=== PATIENT | female | born 1985 | race Caucasian/White ===

== ENCOUNTER 2018-07-02 23:37 | Observation (INO) ==
[2018-07-03 00:27] LABS: Bilirubin,Urine Negative (Negative); Blood,Urine Negative (Negative); Clarity,Urine Clear (Clear); Color,Urine Yellow (Yellow); Glucose,Urine (UA) Normal (Normal); Ketones,Urine Negative (Negative); Leukocyte Esterase,Urine Small (Negative); Nitrite,Urine Negative (Negative); PH,Urine 6.5 pH Units (5.0-8.0); Protein,Urine Negative (Neg-Trace); Specific Gravity,Urine 1.008 (1.010-1.025); Urobilinogen,Urine Normal (Normal)
[2018-07-03 00:29] LABS: Bacteria,Urine None Seen per hpf (None-Few); Hyaline Casts,Urine None Seen per lpf (None-Few); RBC,Urine 0-3 per hpf (0-3); Squamous Epithelial Cell,Urine Many per lpf (None-Few); WBC,Urine 0-3 per hpf (0-3)
[2018-07-03 00:41] LABS: Amphetamine Screen,Urine Negative ng/mL (Cutoff=1000); Barbiturate Screen,Urine Negative ng/mL (Cutoff=200); Benzodiazepines Screen,Urine Negative ng/mL (Cutoff=200); Cannabinoid Screen,Urine Negative ng/mL (Cutoff = 50); Cocaine Screen,Urine Negative ng/mL (Cutoff= 300); Opiate Screen,Urine Negative ng/mL (Cutoff=300); Phencyclidine Screen,Urine Negative ng/mL (Cutoff=25)
[2018-07-03] MEDS ORDERED: Acetaminophen 325 MG TABLET PO ONE (00:41)
--- NOTE | 2018-07-03 05:49 | OB/GYN Progress Note ---
Date of Encounter: 07/03/18 Time of Encounter: 05:44 - Assessment and Plan (1) 36 weeks gestation of Status: Acute Follow up as scheduled Labor parameters discussed Discharge home (2) Uterine contractions at greater than 20 weeks of gestation Status: Acute Extended monitoring was completed without cervical change Tylenol for pain RTC for labor. Subjective - Subjective Principal diagnosis: prodromal labor Interval history: Ms. Ramos presents with c/o contractions that started earlier in the evening on 07/02. She endorses good fm and denies lof and vb. Antepartum ROS: new complaints, movement normal, contractions, no loss of fluid, no vaginal bleeding Objective - Exam FHR: category 1 Auscultation: bilateral: normal Abdomen: Present: normal appearance, soft, gravid Uterus: Present: normal, firm Cervical dilation: 1 Cervix effacement: 50 station: -2 - Labs Labs: Abnormal lab results Ur Specific [place] 1.008 (1.010-1.025) L 07/03/18 00:10 Ur Leukocyte Esterase Small (Negative) H 07/03/18 00:10 Ur Squamous Epith Cells Many per lpf (None-Few) H 07/03/18 00:10 Ur Culture Indicated? NO. (NO) A 07/03/18 00:10
== END 2018-07-03 02:12 | disposition home or self-care (01) ==
LOC: 1NENULAB
PROVIDERS: ADMIT Advanced Practice Midwife; ATTEND Advanced Practice Midwife

== ENCOUNTER 2018-07-05 19:45 | Inpatient (IN) ==
[2018-07-05 20:32] LABS: Amphetamine Screen,Urine Negative ng/mL (Cutoff=1000); Barbiturate Screen,Urine Negative ng/mL (Cutoff=200); Benzodiazepines Screen,Urine Negative ng/mL (Cutoff=200); Cannabinoid Screen,Urine Negative ng/mL (Cutoff = 50); Cocaine Screen,Urine Negative ng/mL (Cutoff= 300); Opiate Screen,Urine Negative ng/mL (Cutoff=300); Phencyclidine Screen,Urine Negative ng/mL (Cutoff=25)
[2018-07-05] MEDS ORDERED: Ondansetron 4 MG/2 ML VIAL IVP PRN (20:50)
[2018-07-05] MEDS ORDERED: Naloxone 0.4 MG/ML INJ IVP PRN (20:50)
[2018-07-05] MEDS ORDERED: Metoclopramide 10 MG/2 ML VIAL IVP PRN (20:50)
[2018-07-05] MEDS ORDERED: *HR* Nalbuphine 10 MG/ML AMPUL IVP PRN (20:50)
[2018-07-05] MEDS ORDERED: Famotidine 20 MG/2 ML VIAL IVP PRN (20:50)
[2018-07-05] MEDS ORDERED: Ringers Solution, Lactated 1,000 ML ONE (20:53)
[2018-07-05] MEDS ORDERED: Ringers Solution, Lactated 1,000 ML IVC SCH (21:00)
--- NOTE | 2018-07-05 21:00 | OB/GYN History & Physical ---
Date of Encounter: 07/05/18 Time of Encounter: 20:57 Assessment and Plan (1) 37 weeks gestation of Current visit: Yes Status: Acute Pt presents with very strong contractions as evidenced by being very uncomfortable. Her cervix has mad def change from office visit earlier today. Plan will be to admit with anticipation of . (2) Trisomy 21 of fetus, current , single gestation Current visit: Yes Status: Acute Will cont.close observation of well being. History of Present Illness Chief complaint: Labor HPI: Ms. Ramos is a 33 year old female female at 37 weeks EGA presents in active labor. She reports 2 hours of progressively worsening uc's <5 min apart. She denies lof or vb. In office today her cervix was 1/70/-2, she is now 3/80-90/-2. This is complicated by with dx of Trisomy 21. Past Med Surg Social Fam HX - Past Medical History Source: patient, old records reviewed Medical history: no medical history Psychiatric history: no psych history - Past Surgical History Surgical History: no surgical history - Social History Smoking Status: Current every day smoker Smokeless Tobacco Status: No Alcohol use: none Drug use: none - Family History Mother Adopted: No Living Status: Still Living Hx Family Cardiac Disorders: Yes (hypertension) Hx Family Respiratory Disorders: No Hx Family Cancer: No Hx Family GI Disorders: No Hx Family Genitourinary Disorders: No Hx Family Endocrine Disorder: No Hx Family Musculoskeletal Disorders: No Hx Family Neuromuscular Disorders: No Hx Family Neurologic Disorders: No Hx Family HEENT Disorders: No Hx Family Autoimmune Disorders: No Hx Family Reproductive Disorders: No Hx Family Psychosocial Disorders: No Hx Family Medical Disorders: No Obstetrical History - Pregnancies : 4 Term: 2 Medications and Allergies Tablet 1 tab PO DAILY 07/03/18 [History] Allergy/AdvReac Type Severity Reaction Status Date / Time No Known Allergies Allergy Verified 03/01/15 13:49 Exam - Constitutional Constitutional: well developed, well nourished, moderate distress - HEENT HEENT: EOMI, PERRL - Neck Neck exam: full ROM - Lungs Respiratory exam: CTAB - Cardiovascular Cardiovascular exam: RRR - Abdomen Abdomen: Present: gravid - Extremities Extremities exam: full ROM Deep Tendon Reflex Grade: 2+ Normal - Cervix Dilation: 3 Effacement: 80 Station: -2 - Uterus Uterus exam: Present: normal size Results All other labs normal. - VTE Reasons for not Prescribing Prophylaxis: Treatment not Indicated - Low risk for VTE
[2018-07-05 21:15] LABS: Basophils % 0.2 %; Eosinophils # 0.2 K/mcL (0.0-0.6); Eosinophils % 1.4 %; Hematocrit 40.6 % (35.3-44.9); Hemoglobin 13.9 g/dL (11.5-15.4); Immature Granulocytes % 0.4 % (0-4); Lymphocytes # 2.4 K/mcL (0.6-4.6); Lymphocytes % 18.7 %; Mean Corpuscular HGB Conc 34.2 g/dL (31.6-35.5); Mean Corpuscular Hemoglobin 31.7 pg (28.0-33.3); Mean Corpuscular Volume 92.5 fL (83.0-100.0); Mean Platelet Volume 11.1 fL (9.4-12.4); Monocytes # 0.8 K/mcL (0.0-1.3); Neutrophils # 9.5 K/mcL (1.6-8.9); Platelet Count 218 K/mcL (140-400); Red Blood Count 4.39 M/mcL (3.82-4.97); Red Cell Distribution Width 12.3 % (11.5-14.5); Segmented Neutrophils % 73.3 %
[2018-07-05] MEDS ORDERED: *HR* FentaNYL (PF) 100 MCG/2 ML VIAL ONE (21:18)
[2018-07-05] MEDS ORDERED: Lidocaine -MPF 1% 5 ML AMPUL ONE (21:19)
[2018-07-05] MEDS ORDERED: Bupivacaine-MPF 0.25% 10 ML VIAL ONE (21:19)
[2018-07-05] MEDS ORDERED: Epidural Premix (fent/bupiv) 110 ML EP ONE (21:39)
--- NOTE | 2018-07-05 21:52 | Anesthesia Evaluation PreOp ---
Date of Encounter: 07/05/18 Time of Encounter: 21:15 - Past History Planned Operation: rae Cardiac History: Denies any Significant Hx Pulmonary History: Denies Any Significant HX LAB AIDE History: Denies Any Significant HX Other Medical History: Denies Any Significant HX Anesthesia History: No Prior Anesthetic Complications, Past Anesthesia (no prior anesthetics) : Yes (37 weeks, ) Alcohol Use: none Drug use: none Medications and Allergies Tablet 1 tab PO DAILY 07/03/18 [History] Allergy/AdvReac Type Severity Reaction Status Date / Time No Known Allergies Allergy Verified 03/01/15 13:49 - Meds/Allergy Pre-op Review Medications Reviewed: Yes Allergies Reviewed: Yes Beta Blockers on Current Med List: No Anesthesia Results - Labs 07/05/18 21:00 Anesthesia Exam O2 Sat Height 1.73 m Weight 78.109 kg bp 132/87 Height: 68 Weight: 172 - HEENT Pupil (Motor): Pupils equal Mallampati: II Teeth: Normal Oral Opening: Greater than 3 - LAB AIDE LOC: Oriented LAB AIDE Motor: Normal RUE, Normal LUE, Normal RLE, Normal LLE, Normal Face LAB AIDE Sensory: Normal: RUE, LUE, RLE, LLE, Face - Cardiac Rhythm: Regular Murmur: None JVD: No Carotid Bruit: No - Pulmonary Breath Sounds: bilateral Clear Respiratory Effort: Symmetrical Anesthesia Assess/Plan ASA Score: 2 Level of consciousness: Cooperative Anesthetic Plan: Epidural Monitoring Plan: Standard Monitors
--- NOTE | 2018-07-05 22:00 | Anesthesia Procedures ---
Addendum entered and electronically signed by Roman Richmond CRNA 07/06/18 07:02: Infant Delivery Date: 07/05/18 Delivery Time: 22:58 Original Note: Date of Encounter: 07/05/18 Time of Encounter: 21:21 (procedure ended at 2139) Procedures: Anesthesia - Epidural/Spinal Patient ID/Chart reviewed: Yes Patient examined: Yes OB Eval: Gestational age: 37 OB Eval: : 4 OB Eval: Hx Para: 2 OB Eval: Dilated at (cm): 5 OB Eval: Contractions: Non-stressed pattern Consent Obtained: Yes Supplemental Oxygen: None/Room Air Site Prep: Aseptic Technique Patient position: upright Local Anesthetic: Lidocaine 1% Amount of Local Anesthetic used: 2 Touhy Needle Gauge: 18 Touhy Needle Depth (cm): 5 Catheter Depth at Skin (cm): 12 Test Dose (1.5% Lido + Epi): Volume given (mls): 3 Test Dose Result: Negative Loading Dose: 0.25% Marcaine (mls): 7 Loading Dose: Fentanyl (mcg): 100 Loading Dose Administered: Thru Touhy Needle Infusion Med: 0.125% Bupivacaine w/ 2 mcg/ml Fentanyl Infusion Rate (mls/hr): [address]: Tegaderm Interspace Used: L3-L4 Loss of Resistance (JAGDEEP): Yes Blood: No CSF: No Paresthesia: No
[2018-07-05] MEDS ORDERED: Oxytocin 20 units/ LR 1000 mL 20 UNIT/1,000 ML BAG IVC ONE (22:55)
--- NOTE | 2018-07-05 23:28 | OB/GYN Procedure Note ---
Delivery - Delivery Date: 07/05/18 Provider: Jelani Quezada Intrapartum events: none Delivery induction: none Delivery augmentation: rupture of membranes Delivery monitor: external FHT, external uterine Anesthesia: epidural Quantitated Blood Loss: 100 - Infant (s) A Delivery Date: 07/05/18 Infant Delivery Time: 22:58 Position: LETHA Route of delivery: Gender: Female Viability: Viable Pounds: 4 Ounces: 14 at 1 minute: 8 at 5 mins: 9 Shoulder Dystocia: not encountered Specimens collected: cord blood Placenta: spontaneous Cord: 3 umbilical vessels - Repair Episiotomy: none Laceration Description: None - Complications Delivery complications: none - Disposition Mom disposition: stable in LDR disposition: stable in LDR - Comments Comments: Pt s/p of liveborn female 4lb 14 oz with apgars 8 & 9 at 1 and 5 min respectively. Infant with typical changes characteristic of trisomy 21. We has spontaneous delivery of small calcified placenta. No laceration. EBL 100 cc. Mother and infant recoverd in LDR.
[2018-07-06] MEDS ORDERED: Acetaminophen 325 MG TABLET PO PRN (00:09)
[2018-07-06] MEDS ORDERED: Measles/Mumps/Rubella Vacc 0.5 ML VIAL SQ PRN (00:09)
[2018-07-06] MEDS ORDERED: Oxytocin 20 units/ LR 1000 mL 20 UNIT/1,000 ML BAG IVC SCH (00:09)
[2018-07-06] MEDS ORDERED: Rho Immune Globulin 1,500 UNIT SYRINGE IM PRN (00:09)
[2018-07-06] MEDS: Prenatal Vit/FA 1 EACH TABLET PO SCH (08:20)
--- NOTE | 2018-07-06 08:20 | OB/GYN Progress Note ---
Date of Encounter: 07/06/18 Time of Encounter: 08:18 - Assessment and Plan (1) Status post vaginal delivery Current Visit: Yes Status: Acute Pt meeting milestones. Anticipate discharge home PPD#2 given late hour of . (2) Breast feeding status of mother Current Visit: Yes Status: Acute Subjective - Subjective Interval history: Pt reports some cramping in her lower back. No other complaints. She desires to shower this am. Patient reports: appetite normal, voiding normally, pain well controlled, ambulating normally : doing well Objective - Latest Vital Signs Latest vital signs: Vital Signs Temp Pulse Resp BP Pulse Ox 07/06/18 07:20 98.0 F 82 16 100/61 07/06/18 03:45 98.1 F 88 16 107/66 97 07/06/18 02:55 97.8 F 81 16 119/72 98 07/06/18 01:45 98.5 F 72 16 114/73 98 Intake and Output 07/05/18 07/06/18 07/06/18 23:59 07:59 15:59 Intake Total 600 / 600 Output Total 600 / 600 800 / 800 Balance -600 / -600 -200 / -200 Intake: Oral 600 / 600 Output: Urine 800 / 800 Estimated Blood Loss 100 / 100 Catheter 500 / 500 Other: Weight 78.109 kg 75.7 kg Patient Weight 07/06/18 23:59 Weight 75.7 kg - Exam Lungs: bilateral: normal Chest: Normal S1, Normal S2 Extremities: Present: normal Abdomen: Present: soft. Absent: tenderness Uterus: Present: firm. Absent: tenderness Uterus Position: 1 Finger Below Umbilicus - Labs Labs: Laboratory Results - last 24 hr 07/05/18 07/05/18 20:04 21:00 WBC 12.9 H RBC 4.39 Hgb 13.9 Hct 40.6 MCV 92.5 MCH 31.7 MCHC 34.2 RDW 12.3 Plt Count 218 MPV 11.1 Immature Gran % 0.4 Seg Neutrophils % 73.3 Lymphocytes % 18.7 Monocytes % 6.0 Eosinophils % 1.4 Basophils % 0.2 Neutrophils # 9.5 H Lymphocytes # 2.4 Monocytes # 0.8 Eosinophils # 0.2 Basophils # 0.0 Urine Opiates Screen Negative Ur Barbiturates Screen Negative Ur Phencyclidine Scrn Negative Ur Amphetamines Screen Negative U Benzodiazepines Scrn Negative Urine Cocaine Screen Negative U Marijuana (THC) Screen Negative Ur Drug Screen Interp See Below
[2018-07-06 08:31] LABS: Basophils % 0.2 %; Eosinophils # 0.1 K/mcL (0.0-0.6); Eosinophils % 1.1 %; Hematocrit 32.7 % (35.3-44.9); Immature Granulocytes % 0.4 % (0-4); Lymphocytes # 1.9 K/mcL (0.6-4.6); Lymphocytes % 17.4 %; Mean Corpuscular HGB Conc 33.9 g/dL (31.6-35.5); Mean Corpuscular Volume 94.2 fL (83.0-100.0); Mean Platelet Volume 11.4 fL (9.4-12.4); Monocytes # 0.7 K/mcL (0.0-1.3); Monocytes % 6.3 %; Platelet Count 170 K/mcL (140-400); Red Blood Count 3.47 M/mcL (3.82-4.97); Red Cell Distribution Width 12.5 % (11.5-14.5); Segmented Neutrophils % 74.6 %
[2018-07-06 08:34] LABS: Hemoglobin 11.1 g/dL (11.5-15.4)
[2018-07-06] MEDS: Ibuprofen 600 MG TABLET PO PRN ×2 (12:03→18:18)
[2018-07-07] MEDS: Prenatal Vit/FA 1 EACH TABLET PO SCH (07:33)
[2018-07-07] MEDS: Ibuprofen 600 MG TABLET PO PRN (07:33)
[2018-07-07 09:11] VITALS: BP 126/70
--- NOTE | 2018-07-07 09:32 | Discharge Summary ---
Date of Encounter: 07/07/18 Time of Encounter: 09:28 - Discharge Diagnosis (1) Vaginal delivery Priority: Primary Status: Acute Comments: S/P vaginal delivery day 2 Pain well controlled Lochia light and without clots VSS Tolerating regular diet; passing flatus Voiding without difficulty Breast feeding Discharge home today POC per consult with Dr Reina (2) Breast feeding status of mother Priority: Secondary Status: Acute - Discharge Medications Prescriptions: Breast Pump [BREAST PUMP] 1 each .ROUTE AD #1 each Docusate [Colace] 100 mg PO BID #30 capsule Ferrous Sulfate 325 mg PO DAILY #90 tablet Ibuprofen [Motrin] 600 mg PO TID PRN #30 tablet PRN Reason: cramping Home Medications: Tablet 1 tab PO DAILY 07/03/18 [History] Acetaminophen [Tylenol] 650 mg PO Q6HR PRN tablet 07/07/18 [Rx] Breast Pump [BREAST PUMP] 1 each .ROUTE AD #1 each 07/07/18 [Rx] Docusate [Colace] 100 mg PO BID #30 capsule 07/07/18 [Rx] Ferrous Sulfate 325 mg PO DAILY #90 tablet 07/07/18 [Rx] Ibuprofen [Motrin] 600 mg PO TID PRN #30 tablet 07/07/18 [Rx] Allergies/Adverse Reactions: Allergy/AdvReac Type Severity Reaction Status Date / Time No Known Allergies Allergy Verified 03/01/15 13:49 Data Procedures and tests throughout hospitalization: Laboratory Tests 07/05/18 07/05/18 07/06/18 20:04 21:00 07:44 WBC 12.9 H 10.7 RBC 4.39 3.47 L Hgb 13.9 11.1 L D Hct 40.6 32.7 L MCV 92.5 94.2 MCH 31.7 32.0 MCHC 34.2 33.9 RDW 12.3 12.5 Plt Count 218 170 MPV 11.1 11.4 Immature Gran % 0.4 0.4 Seg Neutrophils % 73.3 74.6 Lymphocytes % 18.7 17.4 Monocytes % 6.0 6.3 Eosinophils % 1.4 1.1 Basophils % 0.2 0.2 Neutrophils # 9.5 H 8.0 Lymphocytes # 2.4 1.9 Monocytes # 0.8 0.7 Eosinophils # 0.2 0.1 Basophils # 0.0 0.0 Urine Opiates Screen Negative Ur Barbiturates Screen Negative Ur Phencyclidine Scrn Negative Ur Amphetamines Screen Negative U Benzodiazepines Scrn Negative Urine Cocaine Screen Negative U Marijuana (THC) Screen Negative Ur Drug Screen Interp See Below Date of admission: 07/05/18 19:45 Primary care physician: PCP NONE Consults: 07/06/18 00:09 Consult to Deposit Clerk [CONS] Routine Comment: Vaginal delivery, consult needed Discharging clinician: Kathy Reynolds Anticipated date of discharge: 07/07/18 - Patient Status Disposition: Home, Self-Care Condition: Good Functional capacity at discharge: independent ambulation Overall status at discharge: patient is progressing back to baseline - Discharge Instructions Follow Up With: NONE,PCP [Primary Care Provider] - Jelani Quezada MD [Partnered Physician] - - Diet and Activity Activity: increase activity as tolerated Diet: regular diet Hospital Course Reason for admission: IUP at term Delivery: Episiotomy: none Laceration: none Other procedures: none complications: none Discharge diagnosis: IUP at term delivered [place] baby: female Time Attestation: Total time spent providing and/or coordinating discharge services: Time Spent: Less than 30 minutes Exam - Constitutional Vitals: Temp Pulse Resp BP Pulse Ox 97.6 F 74 16 126/70 97 07/07/18 07:30 07/07/18 07:30 07/07/18 07:30 07/07/18 07:30 07/06/18 21:10 General appearance IM: cooperative, A&O X 3, pleasant - Respiratory Respiratory exam: Present: CTAB - Cardiovascular Cardiovascular exam IM: Present: RRR, +S1, +S2 - GI/Abdominal GI/Abdominal exam IM: normal bowel sounds, soft - Rectal Rectal exam: deferred - Uterine Tone: Firm Uterus Position: At Umbilicus, Midline - Extremities Exam Extremities exam IM: Present: normal capillary refill, normal inspection, radial pulses palpable and symmetrical - Neurological Exam Neurological exam: alert, oriented X3
== END 2018-07-07 12:11 | disposition home or self-care (01) | DRG 560 ==
LOC: 1NENULAB → OBSVTOIN 19:45 → 1NENULAB 21:14 → 1NENUOBS 07-06 01:53
PROVIDERS: ADMIT Obstetrics & Gynecology; ATTEND Obstetrics & Gynecology